=== PATIENT | male | born 1960 | race Caucasian/White ===

== ENCOUNTER 2017-05-08 16:42 | Emergency (ER) | payer SELFPAY ==
--- NOTE | ~2017-05-08 | ER ---
PATIENT'S NAME: BRIANNA MEYER [facility] AGE: 56 Y [address] ROOM: [place] [address] LOCATION: [facility] ADMIT DATE: 05/08/2017 ER/Outpatient Report DISCHARGE DATE: FAMILY PHYSICIAN: Franco Strange MD ATTENDING PHYSICIAN: Kandice Slaughter Time of Arrival: 1642 hours. Time of Evaluation/Seen: 1702 hours. IDENTIFICATION: A 56-year-old male. CHIEF COMPLAINT: who had a tree limb down and was working with a chain saw that kicked back into his left groin one week ago. Last night, however, he all of a sudden, had sudden onset of severe left scrotal pain worse with any type of movement. No nausea or vomiting. He went to [facility] and was told to come here for an ultrasound for possible torsion. PAST MEDICAL HISTORY: ALLERGIES: PENICILLIN. CURRENT MEDICATIONS: 1. Bystolic. 2. Omeprazole. MEDICAL PROBLEMS AND MEDICATIONS: Recent hospitalization for chest pain. Had a coronary CT angiography. Coronary artery calcium score of 6, mild coronary artery involving and LAD, medical management and he was discharged on Bystolic 5 mg daily samples. They have not yet filled this prescription. Omeprazole 40 mg, again samples, not filled the prescription. Aspirin 81 mg daily. Atorvastatin 40 mg daily. I do not believe he started the atorvastatin yet. So medical problems: 1. Nonobstructive coronary artery disease. 2. Hyperlipidemia. 3. Hypertension. 4. Gastroesophageal reflux disease. 5. Tobacco dependence. PAST SURGICAL HISTORY: Prior Surgeries: 1. Right neck surgery. 2. Appendectomy. PATIENT'S NAME: BRIANNA MEYER [facility] AGE: 56 Y [address] ROOM: [place] [address] LOCATION: [facility] ADMIT DATE: 05/08/2017 ER/Outpatient Report DISCHARGE DATE: FAMILY PHYSICIAN: Franco Strange MD ATTENDING PHYSICIAN: Kandice Slaughter SOCIAL HISTORY: The patient lives in [place]. Tobacco use, 1 pack per day for 20 years. Alcohol use, denies. Drug use, denies. FAMILY HISTORY: Positive for premature coronary artery disease. REVIEW OF SYSTEMS: All systems were reviewed and negative other than what is noted in the HPI. The patient has had some trouble emptying his bladder, frequent urination but small amounts. PHYSICAL EXAMINATION: VITAL SIGNS: Height 5 feet 7 inches and weight 84.4 kg. Blood pressure 124/74, pulse 60, respiratory rate is 20, temperature 97.0, and saturations 98%. GENERAL: A 56-year-old male in obvious distress. HEENT: Unremarkable. LUNGS: Clear to auscultation. HEART: Regular rate and rhythm. ABDOMEN: Soft, nondistended, and tender to palpation in the suprapubic. No rebound or guarding. No CVA tenderness. GENITOURINARY: Testes descended bilaterally. No significant swelling. No erythema. No bruising or ecchymosis. The patient is exquisitely tender to palpation of his left scrotal sac. No palpable deformities. LABORATORY DATA AND IMAGING STUDIES: Ultrasound is negative per jewelry technician, no evidence of torsion. Sodium 140, potassium 4.1, chloride 109, CO2 of 24, BUN 12, creatinine 1.0, and blood sugar 136. Liver enzymes, normal. CBC, normal. UA, pending. CT scan, stone protocol, pending. EMERGENCY DEPARTMENT COURSE: It is shift change and Dr. Gould will assume care. MD AURELIANO BROWN/bonita /[id number] d: 05/08/172010 t: 05/11/17 0856, OUTPATIENT REPORT
--- NOTE | ~2017-05-08 | ER ---
PATIENT'S NAME: BRIANNA MEYER [facility] AGE: 56 Y [address] ROOM: [place] [address] LOCATION: [facility] ADMIT DATE: 05/08/2017 ER/Outpatient Report DISCHARGE DATE: 05/08/2017 FAMILY PHYSICIAN: Franco Strange MD ATTENDING PHYSICIAN: Kandice Slaughter ADDENDUM: Addendum to Dr. Slaughter's dictation. Please see her dictation for chief complaint, history of present illness, past medical history, past surgical history, social history, allergies, medications, review of systems, physical exam. I was asked to follow up on laboratory analysis and imaging at shift change. I did discuss the case with Dr. Slaughter. I did discuss the case with the patient as well. He does report that he was using a come along to help with some tree removal when part of it snapped back and hit him in the left groin. He had this happen about a week ago and has progressively got worse. He had worsening pain today. He denies any blood in his urine. Denies any fevers or chills. No nausea or vomiting. Just complains of left groin pain. Ultrasound was reported to be negative per Dr. Slaughter. CBC is unremarkable. CMP is unremarkable. LFTs are normal. Urinalysis shows 10 blood, rare rbc's, and epithelials, otherwise unremarkable. CT scan of the abdomen and pelvis is obtained. I have discussed results with the radiologist. There is no evidence of stone. There is no evidence of diverticulitis. There is evidence of diverticulosis. There is no other acute process noted. IMPRESSION: 1. Acute left groin pain. 2. Initial visit. EMERGENCY DEPARTMENT COURSE: The patient was brought back to the examination room. Seen and evaluated initially by Dr. Slaughter. Labs and imaging are obtained as described above. I have discussed results with the patient's who is at bedside. I have recommended rest, ice as well as alternation with heat. I have discussed return to care instructions including worsening symptoms or any other concerns. Return to the emergency department as soon as possible. The patient is agreeable. I have asked he follows up with Dr. Franco Strange in 2 or 3 days for re-evaluation. The patient is also agreeable with this. DISPOSITION: The patient discharged home in good condition. PATIENT'S NAME: BRIANNA MEYER [facility] AGE: 56 Y [address] ROOM: [place] [address] LOCATION: [facility] ADMIT DATE: 05/08/2017 ER/Outpatient Report DISCHARGE DATE: 05/08/2017 FAMILY PHYSICIAN: Franco Strange MD ATTENDING PHYSICIAN: Kandice Slaughter DO JULY EPPS/bonita /[id number] d: 05/08/174 t: 05/10/17 1816, OUTPATIENT REPORT
[~2017-05-08 16:42] MED LIST: ASPIRIN EC81 MG PO; BYSTOLIC5 MG PO; LIPITOR40 MG PO; NEXIUM40 MG PO
[2017-05-08 17:23] LABS: BASOPHIL # 0.1 K/uL (0.0-0.2); BASOPHIL % 0.8 %; EOSINOPHIL # 0.3 K/uL (0.0-0.5); EOSINOPHIL % 4.2 %; HEMATOCRIT 46.2 % (37.0-53.0); HEMOGLOBIN 15.4 g/dL (12.0-17.0); IMMATURE GRANULOCYTE % 0.3 %; LYMPHOCYTE # 3.2 K/uL (0.8-4.0); LYMPHOCYTE % 40.2 %; MCH 28.6 pg (27.0-34.0); MCHC 33.3 gm/dL (32.0-36.5); MCV 85.9 fl (83.0-98.0); MONOCYTE # 0.5 K/uL (0.0-1.0); MONOCYTE % 6.9 %; MPV 10.9 fl (9.4-12.4); NEUTROPHIL # (ANC) 3.8 K/uL (1.4-9.0); NEUTROPHIL % 47.6 %; NRBC % 0 /100WBC (0-0.00); PLATELET COUNT 231 K/uL (150-450); RBC 5.38 M/uL (4.00-6.00); RDW-CV 14.4 % (11.9-14.6); WBC 7.9 K/uL (4.0-11.0)
[2017-05-08 17:39] LABS: ALBUMIN 3.4 gm/dL (3.5-5.0); ANION GAP 11.1 (10.0-19.0); POTASSIUM 4.1 mMol/L (3.7-5.1)
[2017-05-08 17:40] LABS: TOTAL BILIRUBIN 0.2 mg/dL (0.0-1.5)
[2017-05-08 18:19] LABS: BILIRUBIN URINE NEGATIVE (NEGATIVE); BLOOD URINE 10 /UL (NEGATIVE); COLOR URINE YELLOW (YELLOW); GLUCOSE URINE NEGATIVE (NEGATIVE); KETONE URINE NEGATIVE (NEGATIVE); LEUKOCYTES URINE NEGATIVE /UL (NEGATIVE); NITRITE URINE NEGATIVE (NEGATIVE); PROTEIN URINE NEGATIVE (NEGATIVE); SPEC GRAVITY URINE 1.025 (1.003-1.035); TURBIDITY URINE CLEAR (CLEAR); UROBILINOGEN URINE NORMAL (NORMAL)
[2017-05-08 18:29] LABS: BACTERIA URINE NEGATIVE (NEGATIVE); EPITHELIAL URINE RARE #/HPF (NEGATIVE); RBC URINE RARE #/HPF (NEGATIVE); WBC URINE NEGATIVE #/HPF (NEGATIVE)
== END 2017-05-08 18:45 | disposition disaster alternative care site (69) ==
LOC: GACC 16:42
PROVIDERS: Family Medicine
DX: R10.30 Lower abdominal pain, unspecified (principal); I10 Essential (primary) hypertension; E78.5 Hyperlipidemia, unspecified; K21.9 Gastro-esophageal reflux disease without esophagitis; F17.210 Nicotine dependence, cigarettes, uncomplicated; I25.10 Atherosclerotic heart disease of native coronary artery without angina pectoris; Z90.49 Acquired absence of other specified parts of digestive tract; Z88.0 Allergy status to penicillin; Z98.890 Other specified postprocedural states; Z79.899 Other long term (current) drug therapy
CPT/HCPCS: J3010